=== PATIENT | female | born 1965 | race Caucasian/White ===

== ENCOUNTER 2021-03-11 09:47 | Observation (INO) ==
[~2021-03-11 09:47] MED LIST: Buffered Lidocaine 1% SYRIN 1 ml INTRADERM ONE; DiMENhydriNATE IV 50 mg/ml 1 ml VIAL IV PUSH ONE; HYDROcodone/ACETAMIN 5/325 mg TAB PO PRN; Lactated Ringers 1000 ml BAG 1,000 ML IV SCH; Metoclopramide 5 MG/ML VIAL (10 mg) IV PRN; Naloxone 0.4 mg VIAL 0.4 mg/ml 1 ml VIAL IV PRN; Ondansetron 4 mg VIAL 2 MG/ML 2 ml VIAL IV PRN
[2021-03-11] MEDS ORDERED: Lidocaine 2% PF 5 ML VIAL ONE (10:32)
[2021-03-11] MEDS ORDERED: fentaNYL 100 mcg/2 ml 50 MCG/ML VIAL ONE ×2 (10:32→15:40)
[2021-03-11] MEDS ORDERED: Propofol 10 MG/ML 20 ML BTL ONE ×3 (10:32→14:28)
[2021-03-11] MEDS ORDERED: Dexamethasone IV 4 MG/ML VIAL 1 ml VIAL ONE ×2 (10:32→12:56)
[2021-03-11] MEDS ORDERED: Ondansetron 4 mg VIAL 2 MG/ML 2 ml VIAL ONE ×2 (10:32→12:56)
[2021-03-11] MEDS ORDERED: Midazolam 2 mg/2 ml VIAL 1 mg/ml 2 ml VIAL (2 mg) ONE (10:33)
[2021-03-11] MEDS ORDERED: ceFAZolin 2 GM PREMIX 2 GM/50 ML BAG ONE (10:56)
[2021-03-11] MEDS ORDERED: DiMENhydriNATE IV 50 mg/ml 1 ml VIAL ONE (10:56)
[2021-03-11 11:00] LABS: Rapid COVID-19 Molecular Undetected (Undetected)
[2021-03-11] MEDS ORDERED: Phenylephrine 40 mcg/mL 10mL (400mcg) SYRINGE ONE (12:36)
[2021-03-11] MEDS ORDERED: Lactulose 30 ml UDC PO PRN (12:47)
[2021-03-11] MEDS ORDERED: diPHENhydraMINE IV 50 MG/ML 1 ml VIAL (BENADRYL) IV PRN (12:47)
[2021-03-11] MEDS ORDERED: Morphine 2 MG/ML SYRINGE IV PRN (12:47)
[2021-03-11] MEDS ORDERED: Ondansetron 4 mg VIAL 2 MG/ML 2 ml VIAL IV PRN (12:47)
[2021-03-11] MEDS ORDERED: diPHENhydraMINE 25 mg TAB PO PRN (12:47)
[2021-03-11] MEDS ORDERED: Ondansetron ODT 4 mg TAB 4 MG TAB PO PRN (12:47)
[2021-03-11] MEDS ORDERED: Magnesium Hydroxide LIQ 30 ML UDC PO PRN (12:47)
[2021-03-11] MEDS ORDERED: Labetalol IV 5 MG/ML 20 ml VIAL ONE (14:13)
[2021-03-11] MEDS ORDERED: hydrALAZINE 20 mg/ml 1 ML Vial IV ONE (14:44)
[2021-03-11] MEDS: fentaNYL 100 mcg/2 ml 50 MCG/ML VIAL IV PRN ×4 (15:40→15:55)
[2021-03-11] MEDS: Lactated Ringers 1000 ml BAG 1,000 ML IV SCH (17:41)
[2021-03-11] MEDS: Magnesium Hydroxide LIQ 30 ML UDC PO SCH (20:21)
[2021-03-11] MEDS: ceFAZolin 1 GM ADVAN 1 GM in NS 0.9% 50 ML 50 ML IVPB SCH (20:22)
[2021-03-12] MEDS: ceFAZolin 1 GM ADVAN 1 GM in NS 0.9% 50 ML 50 ML IVPB SCH ×2 (04:03→11:44)
[2021-03-12] MEDS: Lactated Ringers 1000 ml BAG 1,000 ML IV SCH (04:10)
[2021-03-12 05:59] LABS: Hematocrit 30 % (35-47); Hemoglobin 10.1 g/dL (12.0-16.0); Mean Platelet Volume 7.5 fL (7.4-10.4); Platelet Count 252 10^3/uL (150-450)
[2021-03-12 06:07] LABS: Calcium 8.5 mg/dL (8.6-10.3); eGFR CKD-EPI 102.9 (>60)
[2021-03-12] MEDS: Magnesium Hydroxide LIQ 30 ML UDC PO SCH (08:56)
[2021-03-12] MEDS ORDERED: Vitamin THERAPEUTIC TAB PO SCH (09:00)
[2021-03-12] MEDS ORDERED: Flu vaccine *QUAD* 2021-22* 0.5 ML SYRINGE IM ONE (09:00)
[2021-03-12 12:15] VITALS: BP 110/66
== END 2021-03-12 14:45 | disposition home or self-care (01) ==
LOC: OR 09:47 → SSU 09:47
PROVIDERS: ADMIT Orthopaedic Surgery Adult Reconstructive Orthopaedic Surgery; ATTEND Orthopaedic Surgery Adult Reconstructive Orthopaedic Surgery